=== PATIENT | male | born 1980 ===

== ENCOUNTER 2020-07-21 07:21 | Emergency (ER) | payer OTHER ==
--- NOTE | 2020-07-21 07:40 | EDM.PDOC ---
ED HPI GENERAL MEDICAL PROBLEM - General Chief Complaint: Genitourinary Problem Stated Complaint: GROIN PAIN / RETURN VISIT Time Seen by Provider: 07/21/20 07:37 Source of Information: Reports: Patient, Old Records, RN, RN Notes Reviewed History Limitations: Reports: No Limitations - History of Present Illness INITIAL COMMENTS - FREE TEXT/NARRATIVE: Pt presents to ER with c/o scrotal/testicular swelling. Pt states he had a vasectomy in [place] on 06/29/20. He developed mild swelling afterwards and was prescribed an antibiotic. He was cleared to participate in [employer] at his f/u appointment. After an exercise workout the pt began to have scrotal swelling. He went to clinic in [place] on 07/19/20 and had an US showing orchitis and B/L hydrocele. Pt was prescribed Augmentin 875mg and a steroid dose pack. He was referred to Dr. Arnold at [facility] scheduled for 07/23/20. Pt states he was told to go to the ER if the swelling increased. The p ain is described as "minimal". Denies dysuria or hematuria. Denies fever or chills. Onset: Gradual Onset Date: 06/29/20 Duration: Constant, Getting Worse Location: Reports: Other () Quality: Reports: Pressure Severity: Mild Improves with: Reports: Rest Worsens with: Reports: Movement Associated Symptoms: Reports: No Other Symptoms Treatments MANUAL QA TESTER: Reports: Other Medication(s) (Augmentin 875mg, Medrol Dose pack) Left Scrotum Pain Score (Numeric/FACES): 2 - Related Data Allergies Allergy/AdvReac Type Severity Reaction Status Date / Time No Known Allergies Allergy Verified 07/21/20 07:36 Home Meds: Home Meds . [No Known Home Meds] 07/21/20 [History] Past Medical History Genitourinary History: Reports: Other (See Below) (Hydrocele) - Past Surgical History Male Surgical History: Reports: Vasectomy Social & Family History - Family History Family Medical History: No Pertinent Family History - Living Situation & Occupation Living situation: Reports: , with Family Occupation: Employed ED ROS GENERAL - Review of Systems Review Of Systems: Comprehensive ROS is negative, except as noted in HPI. ED EXAM, RENAL/ - Physical Exam Exam: See Below Exam Limited By: No Limitations General Appearance: Alert, WD/WN, No Apparent Distress Respiratory/Chest: No Respiratory Distress Cardiovascular: Normal Peripheral Pulses (Male) Exam: No Hernia, Scrotal Swelling (L>Rt), Scrotum Tenderness (L) (mild), Testicular Tenderness (L) (with swelling/enlargement). No: Inguinal Lymphadenopathy, Rash, Urethral Discharge Rectal (Males) Exam: Deferred Back Exam: Normal Inspection Extremities: Normal Inspection Neurological: Alert, Oriented, No Motor/Sensory Deficits Psychiatric: Normal Mood Skin Exam: Warm, Dry, Erythema (scrotum) Course - Vital Signs Last Recorded V/S: Last Vital Signs Temp 97.8 F 07/21/20 07:32 Pulse 101 H 07/21/20 07:32 Resp 18 07/21/20 07:32 BP 131/79 07/21/20 07:32 Pulse Ox 100 07/21/20 07:32 - Orders/Labs/Meds Labs: Laboratory Tests 07/21/20 07/21/20 07/21/20 Range/Units 08:08 08:11 08:11 WBC 14.7 H (5.0-10.0) 10^3/uL RBC 4.90 (4.6-6.2) 10^6/uL Hgb 14.2 (14.0-18.0) g/dL Hct 42.4 (40.0-54.0) % MCV 86.5 (80-100) fL MCH 29.0 (27.0-34.0) pg MCHC 33.5 (33.0-35.0) g/dL Plt Count 266 (150-450) 10^3/uL Neut % (Auto) 82.6 H (42.2-75.2) % Lymph % (Auto) 6.2 L (20.5-50.1) % [place] % (Auto) 10.9 H (2-8) % Eos % (Auto) 0.1 L (1.0-3.0) % Baso % (Auto) 0.2 (0.0-1.0) % C-Reactive Protein 21.7 H (0.0-0.9) mg/dL Urine Color Yellow (YELLOW) Urine Appearance Clear (CLEAR) Urine pH 6.5 (5.0-9.0) Ur Specific [place] 1.015 (1.005-1.030) Urine Protein 30 H (NEGATIVE) Urine Glucose (UA) Negative (NEGATIVE) Urine Ketones 40 H (NEGATIVE) Urine Occult Blood Small H (NEGATIVE) Urine Nitrite Negative (NEGATIVE) Urine Bilirubin Negative (NEGATIVE) Urine Urobilinogen 0.2 (0.2-1.0) mg/dL Ur Leukocyte Esterase Negative (NEGATIVE) Urine RBC 0-5 /HPF Urine WBC 0-5 (0-5/HPF) /HPF Ur Epithelial Cells Not seen (NOT SEEN) /HPF Urine Bacteria Rare (0-FEW/HPF) /HPF Urine Mucus Rare (NOT SEEN) /LPF - Re-Assessments/Exams Free Text/Narrative Re-Assessment/Exam: 07/21/20 08:55 I consulted [facility] via [employer]. Pily advises scrotal support, rest, ice pack, scheduled Ibuprofen 800mg q8HRS, and change antibiotic to Cipro. Pt should f/u on Thursday, July 23 as scheduled. Departure - Departure Time of Disposition: 08:56 Disposition: Home, Self-Care 01 Condition: Fair Clinical Impression: Scrotal swelling, Orchitis of left testicle, Evaluation postoperative testicular pain within 30 days vasectomy Hydrocele Qualifiers: Hydrocele type: unspecified Qualified Code(s): N43.3 - Hydrocele, unspecified - Discharge Information *PRESCRIPTION DRUG MONITORING PROGRAM REVIEWED*: Not Applicable *COPY OF PRESCRIPTION DRUG MONITORING REPORT IN PATIENT DANI: Not Applicable Instructions: Orchitis, Scrotal Swelling, Hydrocele, Adult Forms: ED Department Discharge Additional Instructions: Rx: Cipro 500mg Rx: Ibuprofen 800mg Wear athletic supporter (jock strap) for scrotal support. Rest/bed rest, and apply ice pain to scrotum. Follow at [facility] [address] Arnold as scheduled. Sepsis Event Note (ED) - Evaluation Sepsis Screening Result: No Definite Risk - Focused Exam Vital Signs: Vital Signs Temp Pulse Resp BP Pulse Ox 07/21/20 07:32 97.8 F 101 H 18 131/79 100
== END 2020-07-21 09:02 | disposition home or self-care (01) ==
LOC: DL.ED 07:21
DX: N43.3 Hydrocele, unspecified (principal); N45.2 Orchitis; G89.18 Other acute postprocedural pain
CPT/HCPCS: 36415; 81001; 85025; 86140; 99283; 99284